=== PATIENT | male | born 1995 | race Caucasian/White ===

== ENCOUNTER 2022-04-15 15:33 | Emergency (ER) | payer OTHER ==
[~2022-04-15] VITALS: Ht 175.3 cm; Wt 93.0 kg
[2022-04-15 16:03] VITALS: BP 133/69
--- NOTE | 2022-04-15 19:30 | NUR ---
CALLED TO BE SEEN, BUT NOT IN WAITING ROOM.
== END 2022-04-15 19:31 | disposition left against medical advice (07) ==
LOC: ER 15:38
DX: Z53.21 Procedure and treatment not carried out due to patient leaving prior to being seen by health care provider (principal)